=== PATIENT | female | born 1945 | race Hispanic/Latino ===

== ENCOUNTER 2017-09-17 11:44 | Inpatient (IN) | payer MEDICARE ==
[2017-09-17] MEDS ORDERED: Oxycodone/Acetaminophen 5/325 mg Tab PO STA (12:09)
--- NOTE | 2017-09-17 12:12 | ED PDOC ---
Lower Extremity Pain/Injury Time Seen by Provider: 09/17/17 11:51 Chief Complaint (Nursing): Lower Extremity Problem/Injury Chief Complaint (Provider): Ankle pain History Per: Patient Additional Complaint(s): 72 yo female, PMH of HTN, High Cholesterol, Osteoporosis, Arthritis and Fibromyalgia, presents to ED by EMS for evaluation of right lower leg injury sustained yesterday after falling on foot while getting up from a bench. Bruising and swelling have increased to right ankle and Pt minimally able to ambulate with use of walker. Reports taking hydrocodone at 02:30 this morning. Past Medical History Reviewed: Nursing Documentation, Vital Signs Vital Signs: Last Vital Signs Temp 98.2 F 09/17/17 12:04 Pulse 71 09/17/17 12:04 Resp 18 09/17/17 12:04 BP 129/77 09/17/17 12:04 Pulse Ox 98 09/17/17 12:04 - Medical History PMH: Anxiety, Arthritis, Depression, Fibromyalgia, HTN, Hypercholesterolemia, Osteoporosis - Surgical History Surgical History: Hernia Repair - Family History Family History: States: Unknown Family Hx - Living Arrangements Living Arrangements: Alone - Social History Current smoker - smoking cessation education provided: No Alcohol: None Drugs: Denies - Allergies Allergies/Adverse Reactions: Allergies Allergy/AdvReac Type Severity Reaction Status Date / Time No Known Allergies Allergy Verified 09/17/17 12:03 Review of Systems ROS Statement: Except As Marked, All Systems Reviewed And Found Negative Musculoskeletal: Positive for: Foot Pain Physical Exam - Reviewed Nursing Documentation Reviewed: Yes Vital Signs Reviewed: Yes - Physical Exam Appears: Positive for: Well, Non-toxic, No Acute Distress Head Exam: Positive for: ATRAUMATIC, NORMAL INSPECTION, NORMOCEPHALIC Skin: Positive for: Normal Color, Warm, DRY Eye Exam: Positive for: EOMI, Normal appearance, PERRL ENT: Positive for: Normal ENT Inspection Neck: Positive for: Normal, Painless ROM Cardiovascular/Chest: Positive for: Regular Rate, Rhythm Respiratory: Positive for: CNT, Normal Breath Sounds Gastrointestinal/Abdominal: Positive for: Normal Exam, Bowel Sounds, Soft Back: Positive for: Normal Inspection Extremity: Positive for: Tenderness, Deformity, Swelling, Other (ecchymosis, Right foot and ankle) Neurologic/Psych: Positive for: Alert, Oriented - Laboratory Results Result Diagrams: 09/17/17 15:50 09/17/17 15:50 - ECG O2 Sat by Pulse Oximetry: 98 Medical Decision Making Medical Decision Making: Pt medicated with Percocet PO upon arrival XR: Minimally displaced oblique fracture of the distal fibula with deltoid ligament injury. Podiatry consult obtained. see note. Pt to be admitted in order to undergo medical clearance for OR Case discussed with Dr. Mitchell. Arrangements made for admission Disposition - Clinical Impression Clinical Impression: Ankle fracture, Fall, Inability to ambulate due to right ankle or foot - Patient ED Disposition Is Patient to be Admitted: Yes - Disposition Disposition Time: 17:05 Condition: STABLE Forms: [employer] (Faroese) - POA Present On Arrival: Falls Or Trauma
--- NOTE | 2017-09-17 12:49 | RAD ---
PROCEDURE: Right Ankle Radiographs. HISTORY: fall yesterday COMPARISON: None FINDINGS: BONES: Minimally displaced oblique fracture of the distal fibula. Small plantar calcaneal bone spur. JOINTS: Widening of the medial clear space. Talar dome intact SOFT TISSUES: Marked lateral malleolar soft tissue swelling and small ankle joint effusion. OTHER FINDINGS: Pes planus. IMPRESSION: Minimally displaced oblique fracture of the distal fibula with deltoid ligament injury.
--- NOTE | 2017-09-17 12:50 | RAD ---
PROCEDURE: Right Foot Radiographs. HISTORY: fall yesterday COMPARISON: None. FINDINGS: BONES: Minimally displaced oblique fracture of the distal fibula. Inferior plantar calcaneal spur JOINTS: Widening of the medial clear space. SOFT TISSUES: Lateral malleolar soft tissue swelling. Small ankle joint effusion. OTHER FINDINGS: Pes planus. IMPRESSION: Minimally displaced oblique fracture of the distal fibula with deltoid ligament injury.
--- NOTE | 2017-09-17 12:53 | RAD ---
PROCEDURE: Radiographs of the right tibia and fibula. HISTORY: fall yesterday COMPARISON: None available. TECHNIQUE: Frontal and lateral views obtained. FINDINGS: BONES: Minimally displaced oblique fracture of the distal fibula. JOINT SPACES: Moderate to severe medial tibial femoral compartment narrowing with degenerative spurring. OTHER FINDINGS: None. IMPRESSION: Minimally displaced oblique fracture of the distal fibula. Medial knee degenerative changes.
--- NOTE | 2017-09-17 15:22 | CP.PCM.CON ---
<Megha Roman - Last Filed: 09/17/17 17:18> History of Present Illness - History of Present Illness History of Present Illness: 72 y/o female with PMHx of HTN, hyperlipidemia, acid reflux, OA, fibromyalgia, depression seen and evaluated at bedside in ED for right ankle pain. Patient states that she tripped and fell yesterday at a restaurant and hurt her ankle. Patient states that she had pain at the time of the injury but has increased since then. Patient states that she drove herself home with the injured foot after the injury and went to bed. Patient reports that this morning her leg swole up and had blisters. Patient describes her pain as 3/10 on VAS now. Denies of any recent F/N/V/C/SOB/CP now. Denies of any other pedal complains now. PMHx: HTN, hyperlipidemia, acid reflux, OA, fibromyalgia, depression PSHx: abdominal surgery Allergies: N.K.D.A Social: denies smoking, EtOH use or illicit drug usage Review of Systems - Constitutional Constitutional: As Per HPI Past Patient History - Past Social History Alcohol: None Drugs: Denies - CARDIAC Hx Hypercholesterolemia: Yes Hx Hypertension: Yes - MUSCULOSKELETAL/RHEUMATOLOGICAL Hx Arthritis: Yes Hx Osteoporosis: Yes - GASTROINTESTINAL Hx Gastrointestinal Disorders: Yes Hx Gastroesophageal Reflux: Yes - PSYCHIATRIC Hx Anxiety: Yes Hx Depression: Yes Meds Allergies/Adverse Reactions: Allergies Allergy/AdvReac Type Severity Reaction Status Date / Time No Known Allergies Allergy Verified 09/17/17 12:03 Physical Exam - Constitutional Appears: Well, Non-toxic, No Acute Distress - Extremities Exam Extremities exam: Negative for: calf tenderness Additional comments: Bilateral LE exam: VASC: DP pulses are 2/4 b/l, PT pulses are non-palpable on the right due to edema but 2/4 on left, Cap refill time: < 3 sec to all digits, Temp gradient: warm to cool from proximal to distal, non-pitting edema noted diffusly at the right ankle with surrounding erythema DERM: Hemorrhagic bullae on the anterior aspect of the right ankle, no open lesions, no clinical suspicion of active infection NEURO: Protective sensation slightly diminished ORTHO: diffuse, mild pain present during ROM of the right ankle, no pain on palpation of the calf - Neurological Exam Neurological exam: Alert, Oriented x3 - Psychiatric Exam Psychiatric exam: Normal Affect, Normal Mood Results - Vital Signs Recent Vital Signs: Last Vital Signs Temp 98.2 F 09/17/17 12:04 Pulse 71 09/17/17 12:04 Resp 18 09/17/17 12:04 BP 129/77 09/17/17 12:04 Pulse Ox 98 09/17/17 12:12 - Labs Result Diagrams: 09/17/17 15:50 09/17/17 15:50 Assessment & Plan - Assessment and Plan (Free Text) Assessment: 72 y/o female seen and evaluated at bedside in ED for displaced oblique right fibular fracture Plan: Patient evaluated and charts reviewed Patient discussed in details with attending Dr. Ruddy Kong, charts reviewed X-rays of the foot and ankle ordered/reviewed: - oblique, displaced fracture of the right fibula noted along with increase in the medial clearing space at the ankle joint indicating a deltoid ligament injury Fracture blister dressed with xeroform, DSD and modified flores compression applied to the right ankle Posterior splint applied to the right Patient educated that she will need surgery in order to correct the fracture - patient is in agreement with the plan Patient demanded to stay in the hospital due to her inability to perform activities of daily living on her own and has no one to take care of her Patient will be admitted under hospitaist service Pre-op workup performed during her stay in the ED Podiatry plans for surgery either Wednesday or Wednesday pending medical clearance Thank you for the podiatry consult - podiatry to follow patient while in-house - Date & Time Date: 09/17/17 Time: 15:41 <Anya Fox - Last Filed: 09/22/17 08:49> Results - Vital Signs Recent Vital Signs: Last Vital Signs Temp 98.1 F 09/21/17 08:14 Pulse 87 09/21/17 09:49 Resp 19 09/21/17 08:14 BP 113/68 09/21/17 09:49 Pulse Ox 98 09/21/17 08:14 - Labs Result Diagrams: 09/19/17 06:30 09/19/17 06:30 Assessment & Plan (1) Ankle fracture Status: Acute
[2017-09-17 16:00] LABS: BASO % 0.5 % (0.0-2.0); EOS # 0.2 K/uL (0.0-0.7); EOS % 3.1 % (0.0-4.0); HEMATOCRIT 39.3 % (34.0-47.0); LYMPH # 1.3 K/uL (1.0-4.3); LYMPH % 20.6 % (20.0-40.0); MEAN CELL VOLUME 88.3 fl (81.0-99.0); MEAN CORPUSCULAR HEMOGLOBIN 28.9 pg (27.0-31.0); MEAN CORPUSCULAR HGB CONC 32.8 g/dL (33.0-37.0); MEAN PLATELET VOLUME 8.3 fl (7.2-11.7); MONO # 0.5 K/uL (0.0-0.8); MONO % 8.2 % (0.0-10.0); NEUT # 4.1 K/uL (1.8-7.0); NEUT % 67.6 % (50.0-75.0); NRBC % 0.1 % (0.0-0.0); RED CELL DISTRIBUTION WIDTH 13.8 % (11.5-14.5); WHITE BLOOD COUNT 6.1 K/uL (4.8-10.8)
[2017-09-17 16:06] LABS: ALB/GLOB RATIO 1.4 (1.0-2.1); ALKALINE PHOSPHATASE 56 U/L (38-126); ALT/SGPT 29 U/L (9-52); AST/SGOT 23 U/L (14-36); BILIRUBIN,TOTAL 0.5 mg/dl (0.2-1.3); BLOOD UREA NITROGEN 21 mg/dl (7-17); CALCIUM 8.9 mg/dL (8.4-10.2); CARBON DIOXIDE 30 mmol/L (22-30); CHLORIDE 102 mmol/L (98-107); GFR AFRICAN-AMERICAN > 60; GLUCOSE,RANDOM 103 mg/dL (65-105); SODIUM 138 mmol/l (132-148); TOTAL PROTEIN 6.5 G/DL (6.3-8.2)
[2017-09-17 16:18] LABS: PARTIAL THROMBOPLASTIN TIME 29.4 Seconds (25.6-37.1)
--- NOTE | 2017-09-17 16:27 | RAD ---
PROCEDURE: CHEST RADIOGRAPH, 1 VIEW HISTORY: pre op COMPARISON: None available. FINDINGS: LUNGS: Clear. PLEURA: No pneumothorax or pleural fluid seen. CARDIOVASCULAR: Normal. OSSEOUS STRUCTURES: Degenerative changes. VISUALIZED UPPER ABDOMEN: Normal. OTHER FINDINGS: None. IMPRESSION: No active disease.
[2017-09-17] MEDS: Metoprolol Succinate 50 mg XL Tab PO SCH (21:44)
[2017-09-18 07:15] LABS: HEMATOCRIT 36.6 % (34.0-47.0); MEAN CELL VOLUME 87.2 fl (81.0-99.0); MEAN CORPUSCULAR HEMOGLOBIN 29.4 pg (27.0-31.0); MEAN CORPUSCULAR HGB CONC 33.7 g/dL (33.0-37.0); RED CELL DISTRIBUTION WIDTH 13.3 % (11.5-14.5); WHITE BLOOD COUNT 5.4 K/uL (4.8-10.8)
[2017-09-18 07:20] LABS: ALB/GLOB RATIO 1.3 (1.0-2.1); ALKALINE PHOSPHATASE 60 U/L (38-126); ALT/SGPT 34 U/L (9-52); AST/SGOT 18 U/L (14-36); BILIRUBIN,TOTAL 0.6 mg/dl (0.2-1.3); BLOOD UREA NITROGEN 16 mg/dl (7-17); CALCIUM 8.8 mg/dL (8.4-10.2); CARBON DIOXIDE 29 mmol/L (22-30); CHLORIDE 105 mmol/L (98-107); CHOLESTEROL 125 mg/dL (0-199); GFR AFRICAN-AMERICAN > 60; GLUCOSE,RANDOM 92 mg/dL (65-105); POTASSIUM 3.6 MMOL/L (3.6-5.0); SODIUM 140 mmol/l (132-148); TOTAL PROTEIN 6.2 G/DL (6.3-8.2)
[2017-09-18 07:51] LABS: THYROID STIMULATING HORMONE 0.65 mIU/ML (0.46-4.68)
--- NOTE | 2017-09-18 08:50 | CP.PCM.PN ---
Subjective - Date & Time of Evaluation Date of Evaluation: 09/18/17 Time of Evaluation: 08:00 - Subjective Subjective: Podiatry Progress Note - Dr. Fox 72 year old female patient seen and evaluated for displaced right fibular fracture. Patient resting in bed comfortably, hemodynamically stable and NAD. Denies any acute events overnight. Patient reports moderate pain to right ankle , along with left shoulder pain 2/2 fall. Denies N/V/F/D/C/SOB/calf pain. Offers no other pedal complaints at this time. Objective - Vital Signs/Intake and Output Vital Signs (last 24 hours): Temp Pulse Resp BP Pulse Ox 97.6 F 70 20 134/83 96 09/18/17 08:22 09/18/17 08:22 09/18/17 08:22 09/18/17 08:22 09/18/17 08:22 - Medications Medications: Current Medications Acetaminophen (Tylenol 325mg Tab) 650 mg PO Q6 PRN PRN Reason: Pain, moderate (4-7) Aspirin (Aspirin Chewable) 81 mg PO DAILY [facility] Atorvastatin Calcium (Lipitor) 20 mg PO HS [facility] Last Admin: 09/17/17 21:45 Dose: 20 mg Calcitonin [place] (Miacalcin) 200 iu NS DAILY [facility] Cholecalciferol (Vitamin D) 500 iu PO DAILY [facility] Citalopram Hydrobromide (Celexa) 10 mg PO HS [facility] Last Admin: 09/17/17 21:45 Dose: 10 mg Heparin Sodium (Porcine) (Heparin) 5,000 units SC Q12 [facility] PRN Reason: Protocol Last Admin: 09/17/17 21:46 Dose: 5,000 units Home Med (Biotin [Eugene Biotin]) 10,000 mcg PO DAILY [facility] Home Med (Cartilage/Collagen/Bor/Hyalur [Move Free Ultra Tablet]) 1 each PO DAILY [facility] Home Med (Magnesium Oxide [Magnesium]) 500 mg PO DAILY [facility] Home Med (Selenium [Selenium]) 50 mcg PO DAILY [facility] Lisinopril (Zestril) 20 mg PO DAILY [facility] Metoprolol Succinate (Toprol Xl) 50 mg PO HS [facility] Last Admin: 09/17/17 21:44 Dose: 50 mg Multivitamins/Minerals (Therapeutic-M Tab) 1 tab PO DAILY [facility] Pantoprazole Sodium (Protonix Ec Tab) 20 mg PO BID [facility] Trazodone HCl (Desyrel) 150 mg PO HS [facility] Last Admin: 09/17/17 22:16 Dose: 150 mg - Labs Labs: 09/18/17 05:25 09/18/17 05:25 PT 11.0 Seconds (9.8-13.1) 09/17/17 15:50 INR 1.0 (0.9-1.2) 09/17/17 15:50 APTT 29.4 Seconds (25.6-37.1) 09/17/17 15:50 - Constitutional Appears: Well, Non-toxic, No Acute Distress - Extremities Exam Additional comments: RLE not elevated at time of visit. RLE posterior splint appears clean/dry/intact Neurovascular status intact to digits - Neurological Exam Neurological Exam: Alert, Awake, Oriented x3 - Psychiatric Exam Psychiatric exam: Normal Affect, Normal Mood Assessment and Plan - Assessment and Plan (Free Text) Assessment: 72 year old female patient PMHx of HTN, hyperlipidemia, acid reflux, OA, fibromyalgia, depression with displaced oblique right fibular fracture 2/2 mechanical fall Plan: Patient seen and evaluated at bedside Discussed with attending, Dr. Fox Afebrile, WBC 5.4 R foot/ankle/tib-fib XR reviewed - oblique, displaced fracture of the right fibula noted along with increase in the medial clear space at the ankle joint indicating a deltoid ligament injury Posterior splint maintained. Continue ice and elevation. Patient educated that she will need surgery in order to correct the fracture - patient is in agreement with the plan Continue with pain mgmt -Pre-op workup performed during her stay in the ED Patient demanded to stay in the hospital due to her inability to perform activities of daily living on her own and has no one to take care of her Plan for surgery Wednesday, 09/20. NPO past mn Wednesday -Medical clearance requested Podiatry to continue to follow patient while in house
[2017-09-18] MEDS: Pantoprazole 20 mg EC Tab PO SCH ×2 (08:57→17:01)
[2017-09-18] MEDS: Multivitamin With Minerals Tab PO SCH (08:57)
[2017-09-18] MEDS ORDERED: SELENIUM 50 MCG PO SCH (09:00)
[2017-09-18] MEDS ORDERED: MAGNESIUM OXIDE 500 MG PO SCH (09:00)
[2017-09-18] MEDS ORDERED: [UNRECOGNIZED DRUG - REMARK] PO SCH (09:00)
[2017-09-18] MEDS ORDERED: BIOTIN 10000 MCG PO SCH (09:00)
[2017-09-18] MEDS: Calcitonin 200 Int Units/Inh Nasal Spray (3.7 ml) NS SCH (09:07)
[2017-09-18] MEDS ORDERED: Oxycodone/Acetaminophen 5/325 mg Tab PO PRN (10:14)
--- NOTE | 2017-09-18 10:15 | CARD ---
APPROVED REPORT EKG Measurement Heart [id number] <Conclusion> Normal sinus rhythm Normal ECG
[2017-09-18] MEDS: Oxycodone/Acetaminophen 5/325 mg Tab PO PRN (10:46)
--- NOTE | 2017-09-18 17:12 | HP ---
CHIEF COMPLAINT: Right ankle pain. HISTORY OF PRESENT ILLNESS: This is a 72-year-old female, known case of arthritis, fibromyalgia, elevated cholesterol, and hypertension, who had a fall day before coming to the emergency room. She fell from a bench and she had bruising and swelling of right ankle and was not able to ambulate, so the patient was brought to the emergency room. The patient was found to have fracture and was admitted after Podiatry evaluation. REVIEW OF SYSTEMS: Positive for ankle pain. Review of systems otherwise is also positive for generalized malaise and generalized pain. Review of systems otherwise is negative for headache, dizziness, syncope, loss of consciousness, chest pain, shortness of breath, nausea, vomiting, diarrhea, constipation. Review of systems of all other organ system is unremarkable. PAST MEDICAL HISTORY: Significant for hypertension, elevated cholesterol, anxiety, depression, arthritis, fibromyalgia, and osteoporosis. PAST SURGICAL HISTORY: Remarkable for hernia surgery. PERSONAL HISTORY: The patient is currently nonsmoker, nondrinker. No substance abuse. MEDICATIONS: The patient is on multiple medications, which is as per reconciliation sheet, which was reviewed and ordered. ALLERGIES: THE PATIENT IS NOT ALLERGIC TO ANY MEDICATIONS. FAMILY HISTORY: Noncontributory. PHYSICAL EXAMINATION: GENERAL: A well-built, well-nourished, overweight female, in no acute distress. VITAL SIGNS: Temperature 98.7, pulse 81, respirations 20, and blood pressure 120/74. HEENT: Pupils reacting to light. No JVD. No thyromegaly. No lymphadenopathy. No nystagmus. Normocephalic, atraumatic skull. HEART: S1 and S2, normal and regular. No significant murmur, gallop, or rub is heard. LUNGS: Show good bilateral air entry. No rales or rhonchi. ABDOMEN: Soft, nontender. No organomegaly. No fluid. Bowel sounds are positive. EXTREMITIES: Right lower extremity is under Podiatry dressing. No sign of distal complication. No calf swelling or tenderness. No acute ischemia. No signs of acute distal neurovascular compromise. CENTRAL NERVOUS SYSTEM: The patient is alert, awake, responsive times 3. There is no sign of any acute gross focal motor or sensory neurological deficit. DIAGNOSTIC DATA: Available diagnostic data reviewed. WBC 6.7, hemoglobin 12.9, hematocrit 39.3, and platelets 200. PT 11, PTT 29.4. Sodium 140, potassium 3.6, chloride 105, bicarb 29, BUN 16, and creatinine 0.7. SMA-12 is unremarkable. Ankle x-ray shows fractured ankle. Chest x-ray is unremarkable. EKG shows normal sinus rhythm without any acute ST-T changes. ADMITTING IMPRESSION: Fracture of right ankle, hypertension, arthritis, depression, elevated cholesterol, osteoporosis, and anxiety. PLAN: As ordered. Case and plan discussed with patient. Fadi Mitchell MD
[2017-09-18] MEDS: Metoprolol Succinate 50 mg XL Tab PO SCH (21:16)
[2017-09-19 07:38] LABS: HEMATOCRIT 37.8 % (34.0-47.0); MEAN CELL VOLUME 87.2 fl (81.0-99.0); MEAN CORPUSCULAR HEMOGLOBIN 29.3 pg (27.0-31.0); MEAN CORPUSCULAR HGB CONC 33.6 g/dL (33.0-37.0); RED CELL DISTRIBUTION WIDTH 13.5 % (11.5-14.5); WHITE BLOOD COUNT 5.4 K/uL (4.8-10.8)
[2017-09-19 07:45] LABS: ALB/GLOB RATIO 1.2 (1.0-2.1); ALKALINE PHOSPHATASE 61 U/L (38-126); ALT/SGPT 27 U/L (9-52); AST/SGOT 17 U/L (14-36); BILIRUBIN,TOTAL 0.4 mg/dl (0.2-1.3); BLOOD UREA NITROGEN 16 mg/dl (7-17); CARBON DIOXIDE 28 mmol/L (22-30); CHLORIDE 106 mmol/L (98-107); GFR AFRICAN-AMERICAN > 60; GLUCOSE,RANDOM 101 mg/dL (65-105); POTASSIUM 3.9 MMOL/L (3.6-5.0); SODIUM 141 mmol/l (132-148); TOTAL PROTEIN 6.5 G/DL (6.3-8.2)
[2017-09-19] MEDS: Calcitonin 200 Int Units/Inh Nasal Spray (3.7 ml) NS SCH (08:53)
[2017-09-19] MEDS: Multivitamin With Minerals Tab PO SCH (08:54)
[2017-09-19] MEDS: Pantoprazole 20 mg EC Tab PO SCH ×2 (08:54→17:13)
[2017-09-19] MEDS: Oxycodone/Acetaminophen 5/325 mg Tab PO PRN ×2 (09:04→21:32)
--- NOTE | 2017-09-19 12:27 | CP.PCM.PN ---
Subjective - Date & Time of Evaluation Date of Evaluation: 09/19/17 Time of Evaluation: 12:27 - Subjective Subjective: Podiatry Progress Note - Dr. Fox Objective - Vital Signs/Intake and Output Vital Signs (last 24 hours): Temp Pulse Resp BP Pulse Ox 97.4 F L 76 20 125/78 96 09/19/17 08:28 09/19/17 08:54 09/19/17 08:28 09/19/17 08:54 09/19/17 08:28 - Medications Medications: Current Medications Acetaminophen (Tylenol 325mg Tab) 650 mg PO Q6 PRN PRN Reason: Pain, Mild (1-3) Aspirin (Aspirin Chewable) 81 mg PO DAILY [facility] Last Admin: 09/19/17 08:53 Dose: 81 mg Atorvastatin Calcium (Lipitor) 20 mg PO HS [facility] Last Admin: 09/18/17 21:19 Dose: 20 mg Calcitonin [place] (Miacalcin) 200 iu NS DAILY [facility] Last Admin: 09/19/17 08:53 Dose: 1 spray Cholecalciferol (Vitamin D) 500 iu PO DAILY [facility] Last Admin: 09/19/17 08:58 Dose: 500 iu Citalopram Hydrobromide (Celexa) 10 mg PO HS [facility] Last Admin: 09/18/17 21:19 Dose: 10 mg Heparin Sodium (Porcine) (Heparin) 5,000 units SC Q12 [facility] PRN Reason: Protocol Last Admin: 09/19/17 08:53 Dose: 5,000 units Home Med (Biotin [Eugene Biotin]) 10,000 mcg PO DAILY [facility] Home Med (Cartilage/Collagen/Bor/Hyalur [Move Free Ultra Tablet]) 1 each PO DAILY [facility] Home Med (Magnesium Oxide [Magnesium]) 500 mg PO DAILY [facility] Home Med (Selenium [Selenium]) 50 mcg PO DAILY [facility] Lisinopril (Zestril) 20 mg PO DAILY [facility] Last Admin: 09/19/17 08:54 Dose: 20 mg Metoprolol Succinate (Toprol Xl) 50 mg PO HS [facility] Last Admin: 09/18/17 21:16 Dose: 50 mg Multivitamins/Minerals (Therapeutic-M Tab) 1 tab PO DAILY [facility] Last Admin: 09/19/17 08:54 Dose: 1 tab Oxycodone/Acetaminophen (Percocet 5/325 Mg Tab) 1 tab PO Q6 PRN PRN Reason: Pain, moderate (4-7) Stop: 09/21/17 10:15 Oxycodone/Acetaminophen (Percocet 5/325 Mg Tab) 2 tab PO Q6 PRN PRN Reason: Pain, severe (8-10) Stop: 09/21/17 10:15 Last Admin: 09/19/17 09:04 Dose: 2 tab Pantoprazole Sodium (Protonix Ec Tab) 20 mg PO BID [facility] Last Admin: 09/19/17 08:54 Dose: 20 mg Trazodone HCl (Desyrel) 150 mg PO HS [facility] Last Admin: 09/18/17 21:19 Dose: 150 mg - Labs Labs: 09/19/17 06:30 09/19/17 06:30 PT 11.0 Seconds (9.8-13.1) 09/17/17 15:50 INR 1.0 (0.9-1.2) 09/17/17 15:50 APTT 29.4 Seconds (25.6-37.1) 09/17/17 15:50
--- NOTE | 2017-09-19 13:02 | CP.PCM.PN ---
Subjective - Date & Time of Evaluation Date of Evaluation: 09/19/17 Time of Evaluation: 12:58 - Subjective Subjective: 72 yo pleasant female seen at bedside today in [facility], with splint intact to the right extremity that is elevated with 2 pillows. She states that her pain is controlled with PO medications VAS 4/10. She understands that surgical intervention is required for her care going forward and is scheduled on Wednesday , 09/20/17 on the add-on list for ORIF of the right ankle fracture. She understands the procedure and all questions were answered at this time. Patient reports that she lives at home in [facility] in a [facility] that has handicapped access and many guide rails that will aid her in her rehabilitation. However, she is concerned for her stability post surgery and would like to know if she is a candidate for TCU here at [facility]. Objective - Vital Signs/Intake and Output Vital Signs (last 24 hours): Temp Pulse Resp BP Pulse Ox 97.4 F L 76 20 125/78 96 09/19/17 08:28 09/19/17 08:54 09/19/17 08:28 09/19/17 08:54 09/19/17 08:28 - Medications Medications: Current Medications Acetaminophen (Tylenol 325mg Tab) 650 mg PO Q6 PRN PRN Reason: Pain, Mild (1-3) Aspirin (Aspirin Chewable) 81 mg PO DAILY [facility] Last Admin: 09/19/17 08:53 Dose: 81 mg Atorvastatin Calcium (Lipitor) 20 mg PO HS [facility] Last Admin: 09/18/17 21:19 Dose: 20 mg Calcitonin [place] (Miacalcin) 200 iu NS DAILY [facility] Last Admin: 09/19/17 08:53 Dose: 1 spray Cholecalciferol (Vitamin D) 500 iu PO DAILY [facility] Last Admin: 09/19/17 08:58 Dose: 500 iu Citalopram Hydrobromide (Celexa) 10 mg PO HS [facility] Last Admin: 09/18/17 21:19 Dose: 10 mg Heparin Sodium (Porcine) (Heparin) 5,000 units SC Q12 [facility] PRN Reason: Protocol Last Admin: 09/19/17 08:53 Dose: 5,000 units Home Med (Biotin [Eugene Biotin]) 10,000 mcg PO DAILY [facility] Home Med (Cartilage/Collagen/Bor/Hyalur [Move Free Ultra Tablet]) 1 each PO DAILY [facility] Home Med (Magnesium Oxide [Magnesium]) 500 mg PO DAILY [facility] Home Med (Selenium [Selenium]) 50 mcg PO DAILY [facility] Lisinopril (Zestril) 20 mg PO DAILY [facility] Last Admin: 09/19/17 08:54 Dose: 20 mg Metoprolol Succinate (Toprol Xl) 50 mg PO HS [facility] Last Admin: 09/18/17 21:16 Dose: 50 mg Multivitamins/Minerals (Therapeutic-M Tab) 1 tab PO DAILY [facility] Last Admin: 09/19/17 08:54 Dose: 1 tab Oxycodone/Acetaminophen (Percocet 5/325 Mg Tab) 1 tab PO Q6 PRN PRN Reason: Pain, moderate (4-7) Stop: 09/21/17 10:15 Oxycodone/Acetaminophen (Percocet 5/325 Mg Tab) 2 tab PO Q6 PRN PRN Reason: Pain, severe (8-10) Stop: 09/21/17 10:15 Last Admin: 09/19/17 09:04 Dose: 2 tab Pantoprazole Sodium (Protonix Ec Tab) 20 mg PO BID [facility] Last Admin: 09/19/17 08:54 Dose: 20 mg Trazodone HCl (Desyrel) 150 mg PO HS [facility] Last Admin: 09/18/17 21:19 Dose: 150 mg - Labs Labs: 09/19/17 06:30 09/19/17 06:30 PT 11.0 Seconds (9.8-13.1) 09/17/17 15:50 INR 1.0 (0.9-1.2) 09/17/17 15:50 APTT 29.4 Seconds (25.6-37.1) 09/17/17 15:50 - Extremities Exam Extremities Exam: Normal Capillary Refill. absent: Calf Tenderness - Skin Skin Exam: Warm - Additional Findings Additional findings: Well padded posterior splint intact to the right extremity Assessment and Plan (1) Ankle fracture Status: Acute - Assessment and Plan (Free Text) Plan: 1. Planned surgical intervention : 09/20/17 on the add-on list for ORIF of the right ankle fracture. 2. Patient will be placed NPO status after breakfast 3. Elevate extremity, ice behind the knee until time of surgery 4. Pain medication as ordered 5. PT ordered to help with balance and gait training.
[2017-09-19] MEDS: Metoprolol Succinate 50 mg XL Tab PO SCH (21:36)
--- NOTE | 2017-09-20 09:15 | CP.PCM.PN ---
Subjective - Date & Time of Evaluation Date of Evaluation: 09/20/17 Time of Evaluation: 06:40 - Subjective Subjective: Podiatry Progress Note - Dr. Fox 72 year old female patient seen and evaluated for displaced right fibular fracture. Patient resting in bed comfortably in NAD. Denies any acute events overnight. Patient reports moderate pain to right ankle but states that it is well controlled. Denies N/V/F/D/C/SOB/calf pain. Offers no other pedal complaints at this time. Objective - Vital Signs/Intake and Output Vital Signs (last 24 hours): Temp Pulse Resp BP Pulse Ox 97.9 F 64 20 117/71 97 09/20/17 08:18 09/20/17 08:18 09/20/17 08:18 09/20/17 08:18 09/20/17 08:18 - Medications Medications: Current Medications Acetaminophen (Tylenol 325mg Tab) 650 mg PO Q6 PRN PRN Reason: Pain, Mild (1-3) Aspirin (Aspirin Chewable) 81 mg PO DAILY [facility] Last Admin: 09/19/17 08:53 Dose: 81 mg Atorvastatin Calcium (Lipitor) 20 mg PO HS [facility] Last Admin: 09/19/17 21:33 Dose: 20 mg Calcitonin [place] (Miacalcin) 200 iu NS DAILY [facility] Last Admin: 09/19/17 08:53 Dose: 1 spray Cholecalciferol (Vitamin D) 500 iu PO DAILY [facility] Last Admin: 09/19/17 08:58 Dose: 500 iu Citalopram Hydrobromide (Celexa) 10 mg PO HS [facility] Last Admin: 09/19/17 21:32 Dose: 10 mg Heparin Sodium (Porcine) (Heparin) 5,000 units SC Q12 [facility] PRN Reason: Protocol Last Admin: 09/19/17 21:33 Dose: 5,000 units Home Med (Biotin [Eugene Biotin]) 10,000 mcg PO DAILY [facility] Home Med (Cartilage/Collagen/Bor/Hyalur [Move Free Ultra Tablet]) 1 each PO DAILY [facility] Home Med (Magnesium Oxide [Magnesium]) 500 mg PO DAILY [facility] Home Med (Selenium [Selenium]) 50 mcg PO DAILY [facility] Lisinopril (Zestril) 20 mg PO DAILY [facility] Last Admin: 09/19/17 08:54 Dose: 20 mg Metoprolol Succinate (Toprol Xl) 50 mg PO HS [facility] Last Admin: 09/19/17 21:36 Dose: 50 mg Multivitamins/Minerals (Therapeutic-M Tab) 1 tab PO DAILY [facility] Last Admin: 09/19/17 08:54 Dose: 1 tab Oxycodone/Acetaminophen (Percocet 5/325 Mg Tab) 1 tab PO Q6 PRN PRN Reason: Pain, moderate (4-7) Stop: 09/21/17 10:15 Oxycodone/Acetaminophen (Percocet 5/325 Mg Tab) 2 tab PO Q6 PRN PRN Reason: Pain, severe (8-10) Stop: 09/21/17 10:15 Last Admin: 09/19/17 21:32 Dose: 2 tab Pantoprazole Sodium (Protonix Ec Tab) 20 mg PO BID [facility] Last Admin: 09/19/17 17:13 Dose: 20 mg Trazodone HCl (Desyrel) 150 mg PO HS [facility] Last Admin: 09/19/17 21:33 Dose: 150 mg - Labs Labs: 09/19/17 06:30 09/19/17 06:30 PT 11.0 Seconds (9.8-13.1) 09/17/17 15:50 INR 1.0 (0.9-1.2) 09/17/17 15:50 APTT 29.4 Seconds (25.6-37.1) 09/17/17 15:50 - Constitutional Appears: Well, Non-toxic, No Acute Distress - Extremities Exam Extremities Exam: absent: Calf Tenderness Additional comments: Posterior splint is intact, clean and dry. Patient has ROM at the MTPJ and cap refill time is < 3 sec to all digits - Neurological Exam Neurological Exam: Alert, Awake, Oriented x3 - Psychiatric Exam Psychiatric exam: Normal Affect, Normal Mood Assessment and Plan - Assessment and Plan (Free Text) Assessment: 72 year old female patient PMHx of HTN, hyperlipidemia, acid reflux, OA, fibromyalgia, depression with displaced oblique right fibular fracture 2/2 mechanical fall Plan: Patient seen and evaluated at bedside Discussed with attending, Dr. Ruddy Castaneda, WBC 5.4 R foot/ankle/tib-fib XR reviewed - oblique, displaced fracture of the right fibula noted along with increase in the medial clear space at the ankle joint indicating a deltoid ligament injury Posterior splint maintained. Continue ice and elevation. Patient educated that she will need surgery in order to correct the fracture - patient is in agreement with the plan Medical clearance appreciated Patient is NPO after breakfast Patient is scheduled for OR at 7:00 PM [facility] Podiatry to continue to follow patient while in house
--- NOTE | 2017-09-20 09:39 | PN ---
DATE: 09/19/2017 SUBJECTIVE: The patient is seen and examined. Interim events noted. Consults noted and appreciated. Podiatry followup and intervention noted and appreciated. The patient remains in Regular Medical Floor with ankle cast. The patient feels okay. Denies any chest pain or shortness of breath. PHYSICAL EXAMINATION: GENERAL: The patient is in no acute distress. VITAL SIGNS: Stable. HEART: S1 and S2, normal and regular. LUNGS: Good bilateral air entry. ABDOMEN: Soft, nontender. EXTREMITIES: Right lower extremity is under a podiatry dressing with cast. No sign of distal neurovascular compromise. No edema. No calf swelling. No tenderness. No acute ischemia. CENTRAL NERVOUS SYSTEM: Essentially unchanged. DIAGNOSTIC DATA: Available diagnostic data reviewed. ASSESSMENT AND PLAN: The patient is medically stable and in the optimal condition status post surgery and required anesthesia. There is no medical contraindications were seen. The patient is moderate surgical risk. Plan as ordered. Fadi Mitchell MD
[2017-09-20] MEDS: Multivitamin With Minerals Tab PO SCH (09:45)
[2017-09-20] MEDS: Calcitonin 200 Int Units/Inh Nasal Spray (3.7 ml) NS SCH (09:45)
[2017-09-20] MEDS: Pantoprazole 20 mg EC Tab PO SCH ×2 (09:45→16:00)
--- NOTE | 2017-09-20 12:09 | PN ---
DATE: 09/20/2017 SUBJECTIVE: The patient seen and examined. Interim events noted. Consults noted and appreciated. Podiatry followup and intervention noted and appreciated. Case discussed with Podiatry. The patient is tentatively scheduled for surgery today. The patient took Percocet for her pain last night. Percocet did not help much, but the patient was able to sleep comfortably. No chest pain. No shortness of breath. PHYSICAL EXAMINATION: GENERAL: The patient is in no acute distress. VITAL SIGNS: Stable. HEART: S1 and S2 normal and regular. LUNGS: Good bilateral air exchange. ABDOMEN: Soft, nontender. EXTREMITIES: Right lower extremity is under podiatric dressing. No sign of distal complications. No edema. No calf swelling. No tenderness. No acute ischemia. CENTRAL NERVOUS SYSTEM: Essentially unchanged. DIAGNOSTIC DATA: Available diagnostic data reviewed. ASSESSMENT AND PLAN: Overall, the patient's general medical condition is stable. Plan as ordered. Fadi Mitchell MD
[2017-09-20] MEDS ORDERED: Lidocaine 1% Inj (20ml) IJ ONE (18:05)
[2017-09-20] MEDS ORDERED: ceFAZolin IV 2 gm in Dextrose 2 GM/50 ML BAG IVPB ONE (18:05)
[2017-09-20] MEDS ORDERED: Bupivacaine 0.5% Inj(30mL) IJ ONE (18:05)
[2017-09-20] MEDS ORDERED: Sodium Chloride 0.9% 1,000 ML IV SCH (18:15)
[2017-09-20] MEDS ORDERED: Ropivacaine 0.5% 30ML IV ONE (18:36)
[2017-09-20] MEDS ORDERED: Midazolam 2 MG/2 ML VIAL ONE (18:52)
[2017-09-20] MEDS ORDERED: Lidocaine 4% (Laryng-O-Jet) Kit MM ONE (18:52)
[2017-09-20] MEDS ORDERED: Propofol 10 mg/ml Inj (20 ML) ONE ×2 (18:53→21:47)
[2017-09-20] MEDS ORDERED: Lidocaine 1% Inj (20ml) ONE (19:27)
[2017-09-20] MEDS ORDERED: Sodium Chloride 0.9% 1,000 ML IV ONE ×2 (19:27→22:00)
[2017-09-20] MEDS ORDERED: Rocuronium 10 mg/ml (5 ml) ONE (19:50)
[2017-09-20] MEDS ORDERED: Sevoflurane - Inhalation Anesthetic Liq (250 ml) ONE (19:54)
[2017-09-20] MEDS ORDERED: ePHEDrine 50 mg/ml Inj ONE (20:00)
[2017-09-20] MEDS ORDERED: ceFAZolin IV 1 gm in Dextrose 2 GM/100 ML BAG IVPB ONE (20:04)
[2017-09-20] MEDS ORDERED: Dexamethasone 4 mg/1 ml ONE (20:22)
--- NOTE | 2017-09-20 20:37 | PCM.ANESB7 ---
Adductor Canal Block - Adductor Canal Block Date of Procedure: 09/20/17 Anesthiologist: Errol Pre-Procedure Diagnosis: Right ankle fracture Post-Procedure Diagnosis: Same Procedure Performed: Adductor Canal Block Right - Procedure Adductor Canal Block: The procedure was explained to the patient that it is for the post-operative pain management. Consent was obtained after a thorough discussion with the patient regarding the benefits and possible complications of local anesthetic adductor canal block of the femoral nerve. Standard monitors, as defined by the ASA, were applied to the patient. Time-out was held with the circulating nurse to confirm the appropriate block. After applying supplemental oxygen and administering IV Sedation as needed, the patient was placed in supine position with and the operative leg was flexed slightly at the knee and externally rotated as needed, and was kept anatomically stable. The mid-thigh of the ____ right____ lower extremity was exposed. The ultrasound transducer was then applied transversely along the medial aspect, about midway down the thigh and the femoral artery and vein were identified in appropriate relation with the sartorius muscle. At this time, the femoral nerve was visualized lateral to the femoral artery within the canal. After thorough identification, this area area was prepped with Chloroprep solution three times and 1 % Lidocaine was injected subcutaneously for topical anesthesia. At this point, a #22 gauge Stimuplex 4-inch needle was inserted in-plane in a [id number] orientation, and advanced toward the femoral nerve. Advancement was performed carefully under direct ultrasound visualization. After negative aspiration, __10___cc of __.5___% Marcaine was injected. Under ultrasound guidance the local anesthetics were observed spreading around the femoral nerve. The needle was removed intact and sterile dressing was applied. The patient had stable vital signs, was conscious and in no apparent distress. The patient tolerated the femoral nerve block well with stable vital signs and was prepared for subsequent surgery
--- NOTE | 2017-09-20 20:38 | PCM.ANESB2 ---
Popliteal Nerve Block - Popliteal Nerve Block Date of Procedure: 09/20/17 Anesthesiologist: Johnnie Pre-Procedure Diagnosis: Right ankle fracture Post-Procedure Diagnosis: Same Procedure Performed: Popliteal Nerve Block Right - Procedure Popliteal Nerve Block: This procedure was explained to the patient that it is for post-operative pain management. Consent was obtained after a thorough discussion with the patient regarding the benefits and possible complications of local anesthetic block of the sciatic nerve at the popliteal level. The patient was brought to the operating room and standard monitors are applied. Time-out was held with the circulating nurse to confirm the correct surgery and the appropriate block. After applying oxygen by nasal cannula and administering IV Sedation, patient's operative leg was gently raised and supported and the groove in between the biceps femoris and vastus lateralis muscles was carefully palpated. The skin approximately 8cm above the popliteal crease was then marked. The ultrasound transducer was then applied to the posterior thigh approximately 8cm above the popliteal crease in the transverse plane and the sciatic nerve before its division was visualized lateral to the popliteal artery and in between the bicep femoris and semimembranosus/semitendinosus muscles. After identification, the lateral portion of the thigh was prepped with Betadine solution three times and Lidocaine 1% was injected subcutaneously for topical anesthesia. At this point, a # 21 gauge Stimuplex insulated 4 inch needle was inserted into pre-marked area and advanced in a perpendicular direction. The needle was inserted above the ultrasound transducer in-plane towards the sciatic nerve in a [id number] direction. Needle advancement was performed carefully under direct ultrasound visualization. Nerve stimulator was used and dorsiflexion of the __right___ foot was elicited at a current of ___0.4__ MA. After repeated negative aspiration, ___20__cc of __.5___ % ___marcaine was injected. Under ultrasound guidance the local anesthetics were observed surrounding sciatic nerve . The needle was removed intact and sterile dressing was applied. The patient tolerated the popliteal nerve block well with stable vital signs and was subsequently prepared for the surgery.
[2017-09-20] MEDS ORDERED: Metoprolol 1 mg/ml Inj IVP ONE ×2 (21:25→21:49)
[2017-09-20] MEDS ORDERED: Labetalol 5mg/ml (4ml) ONE (21:53)
[2017-09-20] MEDS ORDERED: Succinylcholine 200 mg/10 ml Inj IV ONE (22:27)
[2017-09-20] MEDS ORDERED: Lactated Ringer's 1,000 ML IV ONE (22:45)
[2017-09-20] MEDS ORDERED: HYDROmorphone 0.5 mg/0.5 ml ISec IVP PRN (22:48)
--- NOTE | 2017-09-20 22:48 | PCM.SURG1 ---
Surgeon's Initial Post Op Note - Surgeon's Notes Surgeon: Dr. Fox Broadcast Field Supervisor: Dr. Prieto, Dr. Snell, Dr. Roman Type of Anesthesia: General Endo, Block [facility]est[facility] Administered By: Dr. Norton Pre-Operative Diagnosis: Right ankle fibular fracture, syndesmosis injury Operative Findings: See dictation. M: Synthes 8 hole 1/3 tubular plate, 4.0mm cancellous PT screws x3, 3.5mm FT cortical screws x5, Arthrex syndesmotic stainless steel tightrope. 2-0, 3-0 vicryl, 3-0 nylon. Post-Operative Diagnosis: Right ankle fibular fracture, syndesmosis injury Operation Performed: Right ankle open reduction internal fixation fibular fracture, syndesmotic injury Specimen/Specimens Removed: none Estimated Blood Loss: EBL {In ML}: 15 Blood Products Given: N/A Drains Used: No Drains Post-Op Condition: Good Date of Surgery/Procedure: 09/20/17 Time of Surgery/Procedure: 20:00
[2017-09-21] MEDS: Metoprolol Succinate 50 mg XL Tab PO SCH (01:11)
[2017-09-21 03:47] VITALS: RESP 19; O2SAT 98
--- NOTE | 2017-09-21 07:43 | PN ---
DATE: 09/21/2017 SUBJECTIVE: The patient is seen and examined. Interim events noted. Consults noted and appreciated. Podiatry followup and procedure and surgery noted and appreciated. The patient feels okay. Denies any specific complaint of chest pain or shortness of breath. Foot pain is adequately controlled. PHYSICAL EXAMINATION: GENERAL: The patient is in no acute distress. VITAL SIGNS: Stable. HEART: S1 and S2. Normal and regular. LUNGS: Good bilateral air exchange. ABDOMEN: Soft, nontender. EXTREMITIES: Right lower extremity is under podiatric dressing and cast. No signs of acute distal neurovascular compromise. No edema. No calf swelling. No tenderness. No acute ischemia. CENTRAL NERVOUS SYSTEM: Essentially unchanged. DIAGNOSTIC DATA: Available diagnostic data reviewed. ASSESSMENT AND PLAN: Overall, the patient's general medical condition is stable. Plan as ordered. Fadi Mitchell MD
[2017-09-21 08:15] VITALS: BP 113/68; PULSE 87; TEMP 98.1
--- NOTE | 2017-09-21 08:53 | CP.PCM.PN ---
Subjective - Date & Time of Evaluation Date of Evaluation: 09/21/17 Time of Evaluation: 08:51 - Subjective Subjective: Podiatry Progress Note - Dr. Fox 72 year old female patient seen and evaluated 1 day s/p right ankle ORIF. Patient resting in bed comfortably in NAD. Denies any acute events overnight. 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 Denies F/N/V/ C/SOB/CP/calf pain. Offers no other pedal complaints at this time. Objective - Vital Signs/Intake and Output Vital Signs (last 24 hours): Temp Pulse Resp BP Pulse Ox 98.1 F 87 19 113/68 98 09/21/17 08:14 09/21/17 08:14 09/21/17 08:14 09/21/17 08:14 09/21/17 08:14 Intake and Output: 09/21/17 09/21/17 06:59 18:59 Intake Total 1600 Balance 1600 - Medications Medications: Current Medications Acetaminophen (Tylenol 325mg Tab) 650 mg PO Q6 PRN PRN Reason: Pain, Mild (1-3) Aspirin (Aspirin Chewable) 81 mg PO DAILY [facility] Last Admin: 09/20/17 09:41 Dose: Not Given Atorvastatin Calcium (Lipitor) 20 mg PO HS [facility] Last Admin: 09/21/17 01:11 Dose: Not Given Calcitonin [place] (Miacalcin) 200 iu NS DAILY [facility] Last Admin: 09/20/17 09:45 Dose: 1 spray Cholecalciferol (Vitamin D) 500 iu PO DAILY [facility] Last Admin: 09/20/17 09:45 Dose: 500 iu Citalopram Hydrobromide (Celexa) 10 mg PO HS [facility] Last Admin: 09/21/17 01:11 Dose: Not Given Enoxaparin Sodium (Lovenox) 40 mg SC DAILY [facility] PRN Reason: Protocol Home Med (Biotin [Eugene Biotin]) 10,000 mcg PO DAILY [facility] Home Med (Cartilage/Collagen/Bor/Hyalur [Move Free Ultra Tablet]) 1 each PO DAILY [facility] Home Med (Magnesium Oxide [Magnesium]) 500 mg PO DAILY [facility] Home Med (Selenium [Selenium]) 50 mcg PO DAILY [facility] Hydromorphone HCl (Dilaudid 0.2 Mg/Ml Security Business Analyst) 0 mg IV PRN PRN; Protocol PRN Reason: Pain, severe (8-10) Last Admin: 09/20/17 23:48 Dose: 0.2 mg Sodium Chloride (Sodium Chloride 0.9%) 1,000 mls @ 150 mls/hr IV .Q6H40M [facility] Stop: 09/21/17 18:08 Last Admin: 09/21/17 01:12 Dose: Not Given Lisinopril (Zestril) 20 mg PO DAILY [facility] Last Admin: 09/20/17 09:47 Dose: 20 mg Metoprolol Succinate (Toprol Xl) 50 mg PO [facility] Last Admin: 09/21/17 01:11 Dose: Not Given Multivitamins/Minerals (Therapeutic-M Tab) 1 tab PO DAILY [facility] Last Admin: 09/20/17 09:45 Dose: 1 tab Oxycodone/Acetaminophen (Percocet 5/325 Mg Tab) 1 tab PO Q6 PRN PRN Reason: Pain, moderate (4-7) Stop: 09/21/17 10:15 Oxycodone/Acetaminophen (Percocet 5/325 Mg Tab) 2 tab PO Q6 PRN PRN Reason: Pain, severe (8-10) Stop: 09/21/17 10:15 Last Admin: 09/19/17 21:32 Dose: 2 tab Pantoprazole Sodium (Protonix Ec Tab) 20 mg PO BID [facility] Last Admin: 09/20/17 16:00 Dose: Not Given Trazodone HCl (Desyrel) 150 mg PO [facility] Last Admin: 09/21/17 01:11 Dose: Not Given - Labs Labs: 09/19/17 06:30 09/19/17 06:30 PT 11.0 Seconds (9.8-13.1) 09/17/17 15:50 INR 1.0 (0.9-1.2) 09/17/17 15:50 APTT 29.4 Seconds (25.6-37.1) 09/17/17 15:50 - Constitutional Appears: Well, Non-toxic, No Acute Distress - Extremities Exam Extremities Exam: absent: Calf Tenderness Additional comments: Posterior splint is intact, clean and dry. Patient has ROM at the MTPJ and cap refill time is < 3 sec to all digits - Neurological Exam Neurological Exam: Alert, Awake, Oriented x3 - Psychiatric Exam Psychiatric exam: Normal Affect, Normal Mood Assessment and Plan - Assessment and Plan (Free Text) Assessment: 72 y/o female with PMHx of HTN, hyperlipidemia, acid reflux, OA, fibromyalgia, depression seen and evaluated 1 day s/p right ankle ORIF Plan: Patient seen and evaluated at bedside Discussed with attending, Dr. Fox Afebrikaylie R foot/ankle/tib-fib Pre-op XR reviewed - oblique, displaced fracture of the right fibula noted along with increase in the medial clear space at the ankle joint indicating a deltoid ligament injury Posterior splint maintained. Continue ice and elevation Continue Physical therapy Patient is stable from Podiatry standpoint - follow up in podiatry clinic on Wednesday with Dr. Fox up on discharge from the hospital Podiatry to continue to follow patient while in house
[2017-09-21] MEDS ORDERED: Enoxaparin 40 mg Syringe SC SCH (09:00)
[2017-09-21] MEDS: Multivitamin With Minerals Tab PO SCH (09:47)
[2017-09-21] MEDS: Pantoprazole 20 mg EC Tab PO SCH (09:49)
[2017-09-21] MEDS: Calcitonin 200 Int Units/Inh Nasal Spray (3.7 ml) NS SCH (09:50)
[2017-09-21] MEDS ORDERED: Oxycodone/Acetaminophen 5/325 mg Tab PO PRN ×2 (12:03→12:04)
--- NOTE | 2017-09-22 14:18 | RAD ---
PROCEDURE: Fluoroscopy up to 1 hr. HISTORY: ANKLE FX COMPARISON: None TECHNIQUE: Standard protocol for this study/examination. FINDINGS: Total fluoroscopic time (continuous mode) utilized during the procedure: 69.6 seconds. Total exam DLP: (mGy): 1.28 IMPRESSION: Less than 1 hr fluoroscopic time utilized during performance of the procedure.
--- NOTE | 2017-09-22 21:47 | OP ---
PROCEDURE DATE: 09/17/2017 PREOPERATIVE DIAGNOSES: 1. Right ankle displaced fibular fracture. 2. Right ankle distal syndesmotic injury and instability. POSTOPERATIVE DIAGNOSES: 1. Right ankle displaced fibular fracture. 2. Right ankle distal syndesmotic injury and instability. PROCEDURE PERFORMED: 1. Right ankle open reduction and internal fixation of fibular fracture with plate and screws. 2. Right ankle open reduction and internal fixation of syndesmotic injury and instability. SURGEON: Anya Fox DPM. ASSISTANTS: Rodger Prieto DPM, Anya Snell DPM and Megha Roman DPM. TYPE OF ANESTHESIA: General anesthesia. ANESTHESIOLOGIST: Nitin Norton MD. INDICATIONS: This patient is a 72-year-old female with the above-mentioned diagnoses. The patient presented to the [facility] after suffering a traumatic right ankle injury. After diagnostic imaging, it was confirmed that the patient had a complete dislocated fracture of the distal fibula as well as a distal ankle syndesmotic injury. The patient presents at this time for surgical intervention. All alternatives, benefits, complications, and risks of the surgical procedure were explained in detail to the patient at length. The patient verbalized understanding and wished to proceed. All questions were addressed and answered. No guarantees were given nor implied. The consent was signed and the n.p.o. status was confirmed prior to bringing the patient to the operating room. OPERATIVE PROCEDURE: The patient was brought to the operating room and placed on the operating room table in the supine position. A pneumatic thigh tourniquet was applied to the patient's right thigh after induction of general anesthesia. The right foot and ankle were then prepped and draped in the normal sterile manner and the procedure began. PROCEDURE #1: Right ankle open reduction and internal fixation of fibular fracture with plate and screws. Attention was directed to the distal lateral aspect of the patient's right ankle where a linear longitudinal incision was made with a skin blade directly overlying the distal fibula. The incision was deepened through the superficial and subcutaneous tissue utilizing sharp and blunt dissection. Care was taken to retract all vital neurovascular structures throughout the duration of the procedure. All superficial bleeding vessels were cauterized utilizing electrocautery. Dissection was then carried down to the level of the periosteum overlying the distal fibula and it was noted at this time that there was a spiral oblique complete fracture of the distal fibula. Utilizing a 15 blade, the periosteum was freed from the distal fibula. A 15 blade and bone curette were then utilized to remove any debris from within the fracture site. Copious amounts of sterile normal saline were then utilized to flush the surgical field. At this time, the fracture site could be clearly visualized and was free of any impinging debris. Next, a bone reduction forceps and manual extraction were utilized to reduce and temporarily stabilize the fibular fracture. Intraoperative fluoroscopy was then utilized to confirm appropriate reduction of the fibular fracture. It was noted on the intraoperative fluoroscopy that the fibula had been adequately restored and pulled out to length and the ankle joint mortise was anatomically restored. At this time, a manual dorsiflexion *------* stress test was utilized to stress the distal ankle syndesmosis and it was noted that there was instability. Next, a Synthes 3.5 mm fully threaded cortical screw was inserted in an interfragmentary manner perpendicular to the fracture site from anterior to posterior utilizing standard AO technique. After the *------*, the appropriately sized Synthes 3.5 mm fully threaded cortical screw was inserted in the matter described utilizing standard AO technique and tying with 2-finger tightness. A second interfragmentary screw was inserted just proximal to the first screw in a similar manner from anterior to posterior perpendicular to the fracture site. A Synthes 4.0 mm partially threaded cannulated screw was then inserted in this location utilizing standard AO technique and tightened with 2-finger tightness. At this time, the temporary bone graft was removed and we noted that there was excellent compression across the fracture site. Next, a Synthes 8-hole one-third tubular plate was positioned on the lateral aspect of the fibula and was bent to the appropriate contouring to the fibula. The Synthes 8-hole plate was then secured to the lateral aspect of the fibula utilizing two 4.0 mm partially threaded cancellous screws in the distal most plate holes and four 3.5 mm fully threaded cortical screws in the proximal most plate holes. All screws were entered utilizing standard AO technique and tightened with 2-finger tightness. Intraoperative fluoroscopy was then utilized and then it was confirmed that there was appropriate positioning of the internal fixation and adequate stabilization of the fracture site. The surgical area was then flushed with copious amounts of sterile normal saline. PROCEDURE #2: Right ankle distal syndesmotic stabilization, open reduction and internal fixation. Due to the instability noted on the previous intraoperative stress radiograph, attention was then directed to the distal ankle syndesmosis. At this time, an [employer] syndesmotic TightRope, the guidewire was inserted through a plate hole approximately 2 cm above the ankle joint. The guidewire was inserted under intraoperative fluoroscopy to ensure that it was parallel to the ankle joint and angled approximately 30 degrees anterior. Next, a cannulated drill from the [employer] syndesmotic TightRope was drilled over the previously inserted guidewire utilizing standard technique. The guidewire was then removed and an Ar[employer]rex syndesmotic TightRope was inserted through the hole utilizing standard technique and tightened as indicated with foot held in neutral positioning. The FiberTape was then cut flushed with the suture buttons and the surgical area was flushed with copious amounts of sterile normal saline. Intraoperative fluoroscopy was then utilized and appropriate placement of the internal fixation and stabilization of the distal ankle syndesmosis was appreciated. The deep layer was then reapproximated utilizing 3-0 Vicryl suture. The skin was then reapproximated utilizing 3-0 nylon suture. Excess views of intraoperative fluoroscopy was necessary to the success of this procedure. Postoperative bandages consisted of Adaptic, Xeroform, DSD, Howard, Webril and a posterior splint was applied at this time and secured with Enrico bandages. POSTOPERATIVE CONDITION: The patient tolerated the procedure and anesthesia well with no apparent complications or complaints. The patient was escorted from the OR to the recovery room with vital signs stable and neurovascular status intact. The patient will be readmitted through the hospital floors and will follow up with Dr. Fox as an outpatient. Rodger Prieto DPM Anya Fox DPM
== END 2017-09-21 15:20 | DRG 494 ==
LOC: H.ER 11:44 → H.ERHOLD 17:05 → H.MEDSURG1 18:14
PROVIDERS: ADMIT Internal Medicine; ATTEND Internal Medicine
PROC: 0QSJ04Z Reposition Right Fibula with Internal Fixation Device, Open Approach (ICD-10-PCS; principal; 2017-09-17)
PROC: 0SSF04Z Reposition Right Ankle Joint with Internal Fixation Device, Open Approach (ICD-10-PCS; 2017-09-17)
PROC: 3E0T3BZ Introduction of Anesthetic Agent into Peripheral Nerves and Plexi, Percutaneous Approach (ICD-10-PCS; 2017-09-17)
PROC: 3E0T33Z Introduction of Anti-inflammatory into Peripheral Nerves and Plexi, Percutaneous Approach (ICD-10-PCS; 2017-09-17)
DX: S82.491A Other fracture of shaft of right fibula, initial encounter for closed fracture (principal); E78.5 Hyperlipidemia, unspecified; M25.371 Other instability, right ankle; M79.7 Fibromyalgia; I10 Essential (primary) hypertension; K21.9 Gastro-esophageal reflux disease without esophagitis; F41.9 Anxiety disorder, unspecified; F32.9 Major depressive disorder, single episode, unspecified; M81.0 Age-related osteoporosis without current pathological fracture; M19.90 Unspecified osteoarthritis, unspecified site; W01.0XXA Fall on same level from slipping, tripping and stumbling without subsequent striking against object, initial encounter; Y92.9 Unspecified place or not applicable